=== PATIENT | female | born 1960 | race Hispanic/Latino ===

== ENCOUNTER → 2019-07-29 | Outpatient (CLI) | payer OTHER | END | disposition home or self-care (01) | LOC: OIH 07:53 | PROVIDERS: ATTEND Internal Medicine | DX: M19.042 Primary osteoarthritis, left hand (principal); M19.041 Primary osteoarthritis, right hand; M17.0 Bilateral primary osteoarthritis of knee; M25.762 Osteophyte, left knee; M25.761 Osteophyte, right knee | CPT/HCPCS: 73130; 73560 ==

== ENCOUNTER → 2022-05-18 | Outpatient (CLI) | payer OTHER ==
[2022-05-18 15:43] LABS: CREATININE 1.3 mg/dL (0.5-1.5); POTASSIUM 4.9 mmol/L (3.5-5.1)
== END | disposition home or self-care (01) ==
LOC: LAB 08:47
PROVIDERS: ATTEND Student in an Organized Health Care Education/Training Program
DX: R07.9 Chest pain, unspecified (principal)
CPT/HCPCS: 36415; 80048

== ENCOUNTER → 2022-05-25 | Outpatient (CLI) | payer OTHER ==
[~2022-05-25] MED LIST: IOHEXOL 350 MG/ML 100ML INFUS..BTL IV ONE; METOPROLOL TARTRATE 1 MG/ML 5ML VIAL IV ONE
== END | disposition home or self-care (01) ==
LOC: RAH 10:30
PROVIDERS: ATTEND Student in an Organized Health Care Education/Training Program
DX: R07.9 Chest pain, unspecified (principal)
CPT/HCPCS: 75574; J3490; Q9967

== ENCOUNTER → 2022-05-28 | Outpatient (CLI) | payer OTHER ==
[2022-05-28 16:57] LABS: ALBUMIN 3.9 g/dL (3.5-5.0); CREATININE 1.4 mg/dL (0.5-1.5); POTASSIUM 4.1 mmol/L (3.5-5.1); TOTAL PROTEIN, SERUM 7.7 g/dL (6.0-8.3)
== END | disposition home or self-care (01) ==
LOC: LAB 11:48
PROVIDERS: ATTEND Student in an Organized Health Care Education/Training Program
DX: I65.21 Occlusion and stenosis of right carotid artery (principal)
CPT/HCPCS: 36415; 80053

== ENCOUNTER → 2022-06-05 | Outpatient (CLI) | payer OTHER ==
[~2022-06-05] MED LIST changes: -METOPROLOL TARTRATE 1 MG/ML 5ML VIAL IV ONE
== END | disposition home or self-care (01) ==
LOC: RAH 08:33
PROVIDERS: ATTEND Student in an Organized Health Care Education/Training Program
DX: I65.22 Occlusion and stenosis of left carotid artery (principal); M47.812 Spondylosis without myelopathy or radiculopathy, cervical region
CPT/HCPCS: 70498; Q9967

== ENCOUNTER → 2024-06-02 | Outpatient (CLI) | payer OTHER ==
[~2024-06-02] MED LIST changes: +GADOTERATE MEGLUMINE 10 MMOL/20 ML VIAL IV ONE; -IOHEXOL 350 MG/ML 100ML INFUS..BTL IV ONE
--- NOTE | 2024-06-02 10:21 | HMCIMG ---
MR ABDOMEN W/WO CON HISTORY: Abnormal findings COMPARISON: None TECHNIQUE: MRI of the abdomen was performed utilizing multiple pulse sequences in axial, coronal and sagittal planes. Patient was given 16 cc of Clariscan through intravenous route. FINDINGS: No pleural effusion is seen bilaterally. Liver is borderline enlarged measuring 16 cm. Spleen, adrenal glands and pancreas are unremarkable. There is simple left renal cyst measuring 10 mm. No hydronephrosis is seen of either kidney. Findings suspicious for small gallstones are seen in the gallbladder. Common duct is dilated measuring 7 mm. There are motion artifacts degrading the image quality. No definite MR evidence of common duct stone is seen. IMPRESSION: 1. Limited study due to extensive motion artifacts. There may be gallstones in the gallbladder. Common duct is borderline dilated measuring 7 mm.
== END | disposition home or self-care (01) ==
LOC: RAH 08:42
PROVIDERS: ATTEND Internal Medicine Gastroenterology
DX: N28.1 Cyst of kidney, acquired (principal); R93.3 Abnormal findings on diagnostic imaging of other parts of digestive tract
CPT/HCPCS: 74183; A9575

== ENCOUNTER → 2025-01-20 | Outpatient (CLI) | payer OTHER ==
[2025-01-20 08:43] LABS: IMMATURE GRANULOCYTE ABSOLUTE 0.01 K/uL (0-1); NUCLEATED RED BLOOD CELLS 0.0 % (0.0-0.19); PLATELET COUNT (AUTO) 227 K/uL (130-400); RED BLOOD CELL COUNT(AUTO) 4.22 MIL/uL (4.00-5.50); RED CELL DISTRIBUTION WIDTH 14.1 % (11.0-15.5); WHITE BLOOD COUNT (AUTO) 5.5 K/uL (4.8-10.8)
[2025-01-20 08:48] LABS: CREATININE 1.2 mg/dL (0.5-1.0); GLOMERULAR FILTR. RATE CALC 50.0 mL/min (>90); GLUCOSE,RANDOM 91.0 mg/dL (70-105); SODIUM SERUM 138.0 mmol/L (136-145); UREA NITROGEN, BLOOD 25.0 mg/dL (7-18)
== END | disposition home or self-care (01) ==
LOC: LAB 08:11
PROVIDERS: ATTEND Urology
DX: N28.1 Cyst of kidney, acquired (principal)
CPT/HCPCS: 36415; 80048; 85025

== ENCOUNTER → 2025-01-21 | Outpatient (CLI) | payer OTHER ==
[~2025-01-21] MED LIST changes: -GADOTERATE MEGLUMINE 10 MMOL/20 ML VIAL IV ONE; +IOHEXOL-350 75 ML VIAL IV ONE
--- NOTE | 2025-01-21 20:44 | HMCIMG ---
EXAM: CT ABDOMEN AND PELVIS W/WO IV CONTRAST CLINICAL HISTORY: Cyst of the kidney, acquired. TECHNIQUE: Axial computed tomography images of the abdomen and pelvis without and with intravenous contrast. The protocol utilizes one or more of the following dose reduction techniques: automated exposure control, adjustments of mA and/or kV according to patient size, and/or use of iterative reconstruction technique. Total exam DLP is 2204. CONTRAST: 76 mL of intravenous contrast was administered. COMPARISON: None. FINDINGS: LOWER CHEST: The lung bases appear clear. No cardiomegaly or pericardial effusion observed. LIVER: Homogeneous. GALLBLADDER AND BILIARY TREE: No calcified gallstones. There is no gallbladder distension or wall edema. No intra- or extrahepatic biliary ductal dilatation. PANCREAS: No focal cystic or solid mass. SPLEEN: Normal size without focal cystic or solid mass. ADRENAL GLANDS: Non-enlarged. KIDNEYS AND URETERS: Normal renal size and position. There is a left renal upper polar hypodense round lesion measuring 9 x 9 mm with average attenuation of 4, without any post-contrast enhancement, compatible with simple cyst, Bosniak class I. Per consensus, no follow-up is needed for simple Bosniak type 1 renal cysts, unless the patient has a malignancy history or risk factors. 7 minutes delayed images demonstrate symmetric contrast excretion through the bilateral renal pelvicalyceal system and the ureter is without hydroureteronephrosis. URINARY BLADDER: Incompletely distended, otherwise grossly unremarkable. REPRODUCTIVE ORGANS: The uterus and adnexa are unremarkable. BOWEL: A moderate amount of fecal material is present in the colon. The appendix is unremarkable, series 2, image 52 - 59/89. No stomach or bowel distension. No focal inflammatory change observed. LYMPH NODES: Not enlarged mesenteric or retroperitoneal lymph nodes. PERITONEUM: No ascites or free air. No other fluid collection. VESSELS: There are minimal atherosclerotic changes in abdominal aorta without dissection or aneurysm. ABDOMINAL WALL: No discrete abdominal or pelvic wall hernia observed. BONES: There are degenerative changes in the spine. Central disc protrusion at L4-L5, L5-S1 levels cause thecal sac indentation. No lytic or blastic abnormality observed. IMPRESSION: 1. Left renal upper pole simple cyst, Bosniak class I. 2. No hydroureteronephrosis. 3. Several additional chronic and incidental findings are noted, as detailed in the body of the report. /[place]
== END | disposition home or self-care (01) ==
LOC: RAH 08:22
PROVIDERS: ATTEND Urology
DX: N28.1 Cyst of kidney, acquired (principal); K56.41 Fecal impaction; M47.817 Spondylosis without myelopathy or radiculopathy, lumbosacral region; M51.27 Other intervertebral disc displacement, lumbosacral region
CPT/HCPCS: 74178; Q9967